=== PATIENT | male | born 1990 | race Caucasian/White ===

== ENCOUNTER 2021-05-28 16:09 | Emergency (ER) | payer OTHER, MEDICAID ==
[~2021-05-28] VITALS: Ht 170.2 cm; Wt 102.1 kg
[~2021-05-28 16:09] MED LIST: ALLEGRA180 MG PO; AUGMENTIN 875875 M1 PO; No home meds.; PREDNISONE 20 M20 M1 PO; PROMETHAZINE-D120 ML PO
[2021-05-28] MEDS ORDERED: FLEXERIL PO (16:21)
[2021-05-28] MEDS ORDERED: PREDNISONE 20 M20 M1 PO (16:21)
[2021-05-28] MEDS ORDERED: HYDROCODON-ACE1 EAC7 PO (16:21)
[2021-05-28 16:39] VITALS: BP 124/86
== END 2021-05-28 16:39 | disposition home or self-care (01) ==
LOC: M.ERS 16:09
DX: M54.32 Sciatica, left side (principal); Z88.5 Allergy status to narcotic agent